=== PATIENT | female | born 2000 | race Hispanic/Latino ===

== ENCOUNTER 2023-01-08 00:43 | Emergency (ER) | payer SELFPAY ==
[~2023-01-08] VITALS: Ht 162.6 cm; Wt 63.5 kg
[2023-01-08 00:50] VITALS: O2SAT 100
== END 2023-01-08 02:09 | disposition home or self-care (01) ==
LOC: ER 00:55
DX: S06.0X0A Concussion without loss of consciousness, initial encounter (principal); S09.8XXA Other specified injuries of head, initial encounter; X58.XXXA Exposure to other specified factors, initial encounter; Y92.9 Unspecified place or not applicable
CPT/HCPCS: 70450; 99282